=== PATIENT | male | born 1995 | race Caucasian/White ===

== ENCOUNTER 2016-12-05 09:28 | Emergency (ER) | payer OTHER ==
[~2016-12-05] VITALS: Ht 172.7 cm; Wt 59.0 kg
[2016-12-05 09:39] VITALS: BP 138/82; PULSE 59; RESP 16; TEMP 98.6; O2SAT 100
[2016-12-05 09:45] VITALS: BP 138/82; PULSE 63; RESP 16; O2SAT 100
[2016-12-05] MEDS ORDERED: DAYT15DI T-DERMAL (09:50)
[2016-12-05] MEDS ORDERED: ACETAMINOPHEN/HYDROcodone 325 MG/5 MG TAB PO ONE (10:00)
[2016-12-05] MEDS ORDERED: TETANUS/DIPHTHERIA TOXOID ADULT 0.5 ML VIAL IM ONE (10:00)
[2016-12-05] MEDS ORDERED: HYDR-3533 PO (10:01)
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
[2017-01-15] MEDS ORDERED: DAYT15DI T-DERMAL (16:24)
[2017-01-15] MEDS ORDERED: INFL1INJ56 IM (16:24)
[2017-01-15] MEDS ORDERED: VENTAER INH (16:27)
== END 2016-12-05 10:51 | disposition home or self-care (01) ==
LOC: NEPC 09:28
DX: S80.12XA Contusion of left lower leg, initial encounter (principal); S80.812A Abrasion, left lower leg, initial encounter; Z23 Encounter for immunization; S40.212A Abrasion of left shoulder, initial encounter; V49.60XA Unspecified car occupant injured in collision with unspecified motor vehicles in traffic accident, initial encounter
CPT/HCPCS: 90471; 90714; 96372